=== PATIENT | male | born 1975 | race Hispanic/Latino ===

== ENCOUNTER 2023-02-15 13:49 | Outpatient (CLI) | payer OTHER, SELFPAY | END 2023-02-15 13:50 | disposition home or self-care (01) | LOC: BICULT 13:49 | PROVIDERS: ATTEND Nurse Practitioner Family | DX: D23.9 Other benign neoplasm of skin, unspecified (principal); I86.1 Scrotal varices | CPT/HCPCS: 76870; 93976 ==